=== PATIENT | male | born 1985 | race African-American/Black ===

== ENCOUNTER 2017-01-23 20:27 | Emergency (ER) | payer OTHER ==
[~2017-01-23] VITALS: Ht 193 cm; Wt 101.7 kg
[~2017-01-23 20:27] MED LIST: CARAFATE1 GM PO; PRILOSEC40 MG PO
[2017-01-23 21:01] VITALS: BP 159/98
[2017-01-23] MEDS ORDERED: IBUPROFEN800 MG PO (22:20)
[2017-01-23] MEDS ORDERED: PERCOCET 5/31 TABLET PO ×2 (22:21→23:46)
[2017-01-23] MEDS ORDERED: NAPROSYN500 MG PO (23:46)
== END 2017-01-24 00:16 | disposition home or self-care (01) ==
LOC: EME 20:27
DX: M75.42 Impingement syndrome of left shoulder (principal)
CPT/HCPCS: 73030; 99281; 99283; S0020

== ENCOUNTER 2017-05-07 18:14 | Emergency (ER) | payer SELFPAY ==
[~2017-05-07] VITALS: Ht 193 cm; Wt 93.9 kg
[~2017-05-07 18:14] MED LIST changes: +IBUPROFEN800 MG PO; +NAPROSYN500 MG PO; +PERCOCET 5/31 TABLET PO
[2017-05-07] MEDS ORDERED: NORCO 5/3251 TABLET PO (20:09)
[2017-05-07 20:38] VITALS: BP 151/82
== END 2017-05-07 20:47 | disposition home or self-care (01) ==
LOC: EME 18:14
PROC: 2W3FX1Z Immobilization of Left Hand using Splint (ICD-10-PCS; principal; 2017-05-07)
DX: S62.395A Other fracture of fourth metacarpal bone, left hand, initial encounter for closed fracture (principal); W22.8XXA Striking against or struck by other objects, initial encounter; F17.200 Nicotine dependence, unspecified, uncomplicated
CPT/HCPCS: 73130; 99281; 99284

== ENCOUNTER 2017-06-06 11:32 | Emergency (ER) | payer OTHER ==
[~2017-06-06] VITALS: Ht 193 cm; Wt 92.5 kg
[~2017-06-06 11:32] MED LIST changes: +NORCO 5/3251 TABLET PO
[2017-06-06] MEDS ORDERED: POLYTRIM EYE DR10 ML LEFT EYE (13:30)
[2017-06-06 14:00] VITALS: BP 153/97
== END 2017-06-06 14:01 | disposition home or self-care (01) ==
LOC: EME 11:32
DX: H10.9 Unspecified conjunctivitis (principal)
CPT/HCPCS: 99281; 99283

== ENCOUNTER 2017-09-01 20:52 | Emergency (ER) | payer OTHER ==
[~2017-09-01] VITALS: Ht 185.4 cm; Wt 92.8 kg
[~2017-09-01 20:52] MED LIST changes: +POLYTRIM EYE DR10 ML LEFT EYE
[2017-09-01 22:46] VITALS: BP 140/66
[2017-09-02] MEDS ORDERED: NORCO 5/3251 TABLET PO (16:04)
[2017-09-02] MEDS ORDERED: MOTRIN800 MG PO (16:05)
== END 2017-09-01 22:48 | disposition home or self-care (01) ==
LOC: EME 20:52
PROC: 0HQLXZZ Repair Left Lower Leg Skin, External Approach (ICD-10-PCS; principal; 2017-09-01)
DX: S81.012A Laceration without foreign body, left knee, initial encounter (principal); S80.211A Abrasion, right knee, initial encounter; W01.198A Fall on same level from slipping, tripping and stumbling with subsequent striking against other object, initial encounter; Y93.02 Activity, running; F17.200 Nicotine dependence, unspecified, uncomplicated
CPT/HCPCS: 73564; 99281; 99285; S0020

== ENCOUNTER 2017-09-02 12:39 | Emergency (ER) | payer OTHER ==
[~2017-09-02] VITALS: Ht 193 cm; Wt 100.0 kg
[2017-09-02] MEDS ORDERED: NORCO 5/3251 TABLET PO (16:04)
[2017-09-02] MEDS ORDERED: MOTRIN800 MG PO (16:05)
[2017-09-02 16:15] VITALS: BP 119/76
== END 2017-09-02 16:16 | disposition home or self-care (01) ==
LOC: EME 12:39
DX: M25.462 Effusion, left knee (principal); V03.90XD Pedestrian on foot injured in collision with car, pick-up truck or van, unspecified whether traffic or nontraffic accident, subsequent encounter; F17.200 Nicotine dependence, unspecified, uncomplicated
CPT/HCPCS: 73564; 99281; 99283

== ENCOUNTER 2017-12-18 01:04 | Emergency (ER) | payer OTHER ==
[~2017-12-18] VITALS: Ht 193 cm; Wt 91.9 kg
[~2017-12-18 01:04] MED LIST changes: +MOTRIN800 MG PO
[2017-12-18 01:13] VITALS: BP 119/80
[2017-12-18] MEDS ORDERED: PERCOCET 5/31 TABLET PO (06:12)
== END 2017-12-18 06:26 | disposition home or self-care (01) ==
LOC: EME 01:04
PROC: 2W3DX1Z Immobilization of Left Lower Arm using Splint (ICD-10-PCS; principal; 2017-12-18)
DX: S52.92XA Unspecified fracture of left forearm, initial encounter for closed fracture (principal); W10.9XXA Fall (on) (from) unspecified stairs and steps, initial encounter; F17.200 Nicotine dependence, unspecified, uncomplicated
CPT/HCPCS: 73030; 73090; 73110